=== PATIENT | female | born 1990 | race Caucasian/White ===

== ENCOUNTER 2020-10-17 12:46 | Emergency (ER) | payer MEDICAID, MEDICARE, OTHER ==
[~2020-10-17] VITALS: Ht 157.5 cm; Wt 75.0 kg
[~2020-10-17 12:46] MED LIST: AMPH12.52 PO; CLON-527 PO; CLON-528 PO; LAMO200T2 PO; OMEP-84 PO; ZIPR80CA2 PO; ZOF4T PO
[2020-10-17 12:50] VITALS: BP 124/73
--- NOTE | 2020-10-17 12:56 | NUR ---
paul states that she is not allergic to morphine
[2020-10-17] MEDS ORDERED: CLIN-142 PO (13:42)
[2020-10-17] MEDS ORDERED: LIDO20SO16 PO (13:44)
[2020-10-17] MEDS ORDERED: LIDOcaine Viscous 15ml cup MM ONE (13:50)
== END 2020-10-17 14:14 | disposition home or self-care (01) ==
LOC: ER 12:46
DX: K04.7 Periapical abscess without sinus (principal); K08.89 Other specified disorders of teeth and supporting structures; Z87.11 Personal history of peptic ulcer disease; Z98.891 History of uterine scar from previous surgery; Z88.8 Allergy status to other drugs, medicaments and biological substances; Z79.2 Long term (current) use of antibiotics; Z79.899 Other long term (current) drug therapy
CPT/HCPCS: 99283